=== PATIENT | female | born 1985 | race African-American/Black ===

== ENCOUNTER 2016-09-17 12:25 | Emergency (ER) | payer MEDICAID ==
[~2016-09-17] VITALS: Ht 162.6 cm; Wt 60.0 kg
[~2016-09-17 12:25] MED LIST: PREN-88
[2016-09-17] MEDS ORDERED: MORPHINE SULFATE 4 MG/ML CPJ (NOT FOR IM USE) IV STA (13:28)
[2016-09-17] MEDS ORDERED: ONDANSETRON HCL 4MG/2ML VIAL IV STA (13:28)
[2016-09-17] MEDS ORDERED: SODIUM CHLORIDE 0.9% 1,000 ML IV ONE (13:28)
[2016-09-17] MEDS ORDERED: LEVETIRACETAM 500MG PREMIX 100 ML IV ONE (13:30)
[2016-09-17 14:00] LABS: BASOPHILS % 0.3 % (0.0-2.0); EOSINOPHILS % 0.6 % (0.0-5.0); HEMATOCRIT. 30.1 % (36.0-48.0); HEMOGLOBIN. 10.2 g/dL (12.0-16.0); LYMPHOCYTES % 16.6 % (20.0-50.0); MEAN CORPUSCULAR HEMOGLOBIN 27.5 pg (28.0-32.0); MEAN CORPUSCULAR HGB CONC 33.7 g/dL (31.0-37.0); MEAN CORPUSCULAR VOLUME 81.4 fL (81.0-99.0); MEAN PLATELET VOLUME 7.3 fl (7.4-10.4); MONOCYTES % 5.3 % (2.0-8.0); NEUTROPHILS % 77.2 % (40.0-76.0); PLATELET 294 x1000/uL (130-400); WHITE BLOOD COUNT 12.2 x1000/uL (4.5-11.0)
[2016-09-17 14:11] LABS: CHLORIDE 106 mEq/L (98-107); INDEX HEMOLYSI 1 (1-3); INDEX ICTERIC 1 (1-4); INDEX LIPEMIC 1 (1-3)
[2016-09-17 14:16] LABS: ANION GAP 13; CALCIUM 8.5 mg/dL (8.5-10.1); CARBON DIOXIDE 23 mEq/L (21-32); ETHANOL BLOOD < 10 mg/dL
[2016-09-17 14:24] LABS: UREA NITROGEN BLOOD 4 mg/dL (7-21)
[2016-09-17 14:25] LABS: ALANINE AMINOTRANSFERASE 13 IU/L (13-61); CREATINE KINASE 109 IU/L (26-192); PHENYTOIN 0.6 ug/mL (10-20); THYROID STIMULATING HORMONE 0.56 uIU/mL (0.36-3.74); eGFR > 60 mL/min (>60)
[2016-09-17 14:26] LABS: CARBAMAZEPINE < 0.5 ug/mL (4-12); PHENOBARBITAL < 2.1 ug/mL (15.0-40.0); VALPROIC ACID 4.4 ug/mL (50-100)
[2016-09-17 14:40] LABS: B-HCG QUANTITATIVE 9388 mIU/mL (<3)
[2016-09-17 16:03] LABS: CLARITY URINE CLEAR (CLEAR); COLOR URINE YELLOW (YELLOW); GLUCOSE URINE NEGATIVE (NEGATIVE); KETONES URINE NEGATIVE (NEGATIVE); LEUKOCYTE ESTERASE URINE NEGATIVE (NEGATIVE); NITRITE URINE NEGATIVE (NEGATIVE); OCCULT BLOOD URINE NEGATIVE (NEGATIVE); PH URINE 7.5 (4.5-8.0); PROTEIN URINE NEGATIVE (NEGATIVE); SPECIFIC GRAVITY URINE 1.014 (1.005-1.030)
[2016-09-17] MEDS ORDERED: PHENOBARBITAL 100MG TABLET PO ONE (16:45)
[2016-09-17 16:55] LABS: *AMPHETAMINES SCREEN URINE NEGATIVE (NEGATIVE); *BARBITURATES SCREEN URINE NEGATIVE (NEGATIVE); *BENZODIAZEPINES SCREEN URINE NEGATIVE (NEGATIVE); *COCAINE SCREEN URINE NEGATIVE (NEGATIVE); ECSTASY MDMA SCREEN URINE NEGATIVE (NEGATIVE); METHADONE URINE SCREEN NEGATIVE (NEGATIVE); PHENCYCLIDINE URINE SCREEN NEGATIVE (NEGATIVE)
[2016-09-17 16:56] LABS: CANNABINOID URINE SCREEN PRESUMTIVE POSITIVE (NEGATIVE); OPIATES URINE SCREEN PRESUMTIVE POSITIVE (NEGATIVE)
[2016-09-17] MEDS ORDERED: PHENOBARBITAL 30 MG TABLET PO NR (17:15)
[2016-09-17 18:05] VITALS: BP 102/67
== END 2016-09-17 18:35 | disposition home or self-care (01) ==
LOC: ER 12:35
DX: O20.0 Threatened abortion (principal); G40.909 Epilepsy, unspecified, not intractable, without status epilepticus; O99.012 Anemia complicating pregnancy, second trimester; D64.9 Anemia, unspecified; O26.892 Other specified pregnancy related conditions, second trimester; Z85.3 Personal history of malignant neoplasm of breast; Z3A.19 19 weeks gestation of pregnancy
CPT/HCPCS: 36415; 76805; 80053; 80156; 80165; 80184; 80185; 80305; 81003; 82550; 84443; 84702; 85025; 86850; 86900; 86901; 96365; 96375; 99285; G0482; J1953; J2270; J2405; Z7610; J7030

== ENCOUNTER 2017-01-14 12:51 | Emergency (ER) | payer MEDICAID ==
[~2017-01-14] VITALS: Ht 154.9 cm; Wt 61.7 kg
[2017-01-14] MEDS ORDERED: PHEN15TA18 PO (13:38)
[2017-01-14] MEDS ORDERED: PREN-88 PO (13:38)
== END 2017-01-14 14:30 | disposition home or self-care (01) ==
LOC: ER 13:04 → L&D 13:05
PROVIDERS: ADMIT Obstetrics & Gynecology; ATTEND Obstetrics & Gynecology
DX: O76 Abnormality in fetal heart rate and rhythm complicating labor and delivery (principal); Z3A.37 37 weeks gestation of pregnancy
CPT/HCPCS: 99281; G0378; Z7610; 99285

== ENCOUNTER 2017-01-21 05:54 | Inpatient (IN) | payer MEDICAID ==
[~2017-01-21] VITALS: Ht 152.4 cm; Wt 62.6 kg
[~2017-01-21 05:54] MED LIST changes: +PHEN15TA18 PO; -PREN-88; +PREN-88 PO
[2017-01-21] MEDS ORDERED: DEXT 5%/LR + PITOCIN 20UNITS/L 1,000 ML IV SCH ×2 (06:04→16:35)
[2017-01-21] MEDS ORDERED: LIDOCAINE HCL 1% 20ML VIAL (Pyxis) INJ INFIL SCH (06:15)
[2017-01-21] MEDS ORDERED: NALOXONE HCL 0.4 MG/ML 1ML VIAL IM PRN (06:15)
[2017-01-21] MEDS ORDERED: METHYLERGONOVINE MALEATE 0.2 MG/ML IM PRN ×2 (06:15→16:45)
[2017-01-21] MEDS ORDERED: PENICILLIN G POTASSIUM 5 MMU in DEXT 5% WATER 100 ML IV SCH (07:00)
[2017-01-21] MEDS ORDERED: BUTORPHANOL TARTRATE 2 MG/ML VIAL IV PRN (07:15)
[2017-01-21] MEDS: LACTATED RINGERS 1,000 ML IV SCH ×2 (07:21→10:10)
[2017-01-21 08:03] LABS: CLARITY URINE TURBID (CLEAR); COLOR URINE YELLOW (YELLOW); GLUCOSE URINE NEGATIVE (NEGATIVE); KETONES URINE NEGATIVE (NEGATIVE); LEUKOCYTE ESTERASE URINE 2+ (NEGATIVE); NITRITE URINE NEGATIVE (NEGATIVE); OCCULT BLOOD URINE TRACE (NEGATIVE); PH URINE 6.5 (4.5-8.0); PROTEIN URINE TRACE (NEGATIVE); SPECIFIC GRAVITY URINE 1.011 (1.005-1.030); UROBILINOGEN URINE 0.2 E.U./dL (0.2-1.0)
[2017-01-21 08:06] LABS: BASOPHILS % 0.6 % (0.0-2.0); EOSINOPHILS % 0.5 % (0.0-5.0); HEMATOCRIT. 31.2 % (36.0-48.0); LYMPHOCYTES % 26.5 % (20.0-50.0); MEAN CORPUSCULAR HEMOGLOBIN 26.1 pg (28.0-32.0); MEAN CORPUSCULAR VOLUME 81.8 fL (81.0-99.0); MEAN PLATELET VOLUME 7.6 fl (7.4-10.4); MONOCYTES % 5.7 % (2.0-8.0); NEUTROPHILS % 66.7 % (40.0-76.0); PLATELET 297 x1000/uL (130-400); RED BLOOD CELL COUNT 3.81 mill/uL (4.2-5.4); RED CELL DISTRIBUTION WIDTH 14.9 % (11.6-14.6)
[2017-01-21 08:09] LABS: INR 0.9; PARTIAL THROMBOPLASTIN TIME 26.4 sec (23.4-31.0); PROTHROMBIN TIME 9.4 sec (9.4-11.6)
[2017-01-21 08:16] LABS: *AMPHETAMINES SCREEN URINE NEGATIVE (NEGATIVE); *BARBITURATES SCREEN URINE NEGATIVE (NEGATIVE); *BENZODIAZEPINES SCREEN URINE NEGATIVE (NEGATIVE); *COCAINE SCREEN URINE NEGATIVE (NEGATIVE); METHADONE URINE SCREEN NEGATIVE (NEGATIVE); OPIATES URINE SCREEN NEGATIVE (NEGATIVE); PHENCYCLIDINE URINE SCREEN NEGATIVE (NEGATIVE)
[2017-01-21 08:23] LABS: CARBON DIOXIDE 22 mEq/L (21-32); CHLORIDE 106 mEq/L (98-107)
[2017-01-21 08:45] LABS: CANNABINOID URINE SCREEN PRESUMTIVE POSITIVE (NEGATIVE)
[2017-01-21] MEDS ORDERED: BUPIVACAINE HCL/NS/PF EPIDURAL 100 ML EP ONE (08:58)
[2017-01-21] MEDS ORDERED: BUPIVACAINE HCL/PF 0.25% (2.5MG/ML) 10ML ONE (08:58)
[2017-01-21] MEDS ORDERED: FENTANYL CITRATE/PF 50MCG/ML 2ML VIAL ONE (08:58)
[2017-01-21 09:22] LABS: RUBELLA IGG 89.6 IU/mL (4.99-10)
[2017-01-21 09:23] LABS: HEPATITIS B SURFACE ANTIGEN NEGATIVE
[2017-01-21] MEDS ORDERED: BUPIVACAINE HCL/NS/PF EPIDURAL 100 ML EP SCH (09:45)
[2017-01-21] MEDS ORDERED: DIPHENHYDRAMINE 50MG/ML VIAL IM PRN (09:45)
[2017-01-21] MEDS ORDERED: ONDANSETRON HCL 4MG/2ML VIAL IV PRN (09:45)
[2017-01-21] MEDS: PENICILLIN G POTASSIUM 2.5 MMU in DEXTROSE 5% WATER 50 ML IV SCH ×2 (11:35→15:15)
[2017-01-21] MEDS ORDERED: BISACODYL 10MG SUPP PR PRN (16:45)
[2017-01-21] MEDS ORDERED: ACETAMINOPHEN WITH CODEINE 300/30MG TABLET PO PRN (16:45)
[2017-01-21] MEDS: ACETAMINOPHEN WITH CODEINE 300/30MG TABLET PO PRN (19:22)
[2017-01-21 19:45] VITALS: BP 115/71
[2017-01-21] MEDS: DOCUSATE SODIUM 100MG CAPSULE PO SCH (21:48)
[2017-01-21] MEDS: MAGNESIUM/ALUMINUM HYDROXIDE/SIMETHICONE 30ML UDC PO SCH (21:49)
[2017-01-21 23:50] VITALS: BP 116/48
[2017-01-21] MEDS: IBUPROFEN 400MG TABLET PO PRN (23:59)
[2017-01-22 06:27] LABS: HEMATOCRIT 27.9 % (36.0-48.0)
[2017-01-22 08:30] VITALS: BP 108/66
[2017-01-22] MEDS: ACETAMINOPHEN WITH CODEINE 300/30MG TABLET PO PRN ×3 (08:47→21:26)
[2017-01-22] MEDS: PRENATAL VIT/FE FUMARATE/FA TABLET PO SCH (08:48)
[2017-01-22] MEDS ORDERED: FERROUS SULFATE 325MG TABLET PO SCH (12:10)
[2017-01-22 15:00] VITALS: BP 119/63
[2017-01-22 20:00] VITALS: BP 110/78
[2017-01-22] MEDS: DOCUSATE SODIUM 100MG CAPSULE PO SCH (21:26)
[2017-01-22] MEDS: LEVETIRACETAM 500MG TABLET PO SCH (21:27)
[2017-01-23] VITALS: BP 108/58
[2017-01-23] MEDS: MAGNESIUM/ALUMINUM HYDROXIDE/SIMETHICONE 30ML UDC PO SCH ×2 (03:06→08:26)
[2017-01-23 04:00] VITALS: BP 108/72
[2017-01-23 07:27] VITALS: BP 122/81
[2017-01-23] MEDS: PRENATAL VIT/FE FUMARATE/FA TABLET PO SCH (08:26)
[2017-01-23] MEDS: IBUPROFEN 400MG TABLET PO PRN (08:27)
[2017-01-23] MEDS: LEVETIRACETAM 500MG TABLET PO SCH (08:27)
== END 2017-01-23 12:00 | disposition home or self-care (01) | DRG 560 ==
LOC: L&D 05:54 → OBSVTOIN 05:54 → 7EST PP/OB 18:45
PROVIDERS: ADMIT Obstetrics & Gynecology; ATTEND Obstetrics & Gynecology
PROC: 3E0S3CZ (ICD-10-PCS; 2017-01-21)
PROC: 00HU33Z Insertion of Infusion Device into Spinal Canal, Percutaneous Approach (ICD-10-PCS; 2017-01-21)
PROC: 10E0XZZ Delivery of Products of Conception, External Approach (ICD-10-PCS; principal; 2017-01-21 16:11)
DX: O99.354 Diseases of the nervous system complicating childbirth (principal); D62 Acute posthemorrhagic anemia; O99.02 Anemia complicating childbirth; G40.909 Epilepsy, unspecified, not intractable, without status epilepticus; Z85.3 Personal history of malignant neoplasm of breast; Z3A.37 37 weeks gestation of pregnancy; Z37.0 Single live birth; O99.824 Streptococcus B carrier state complicating childbirth
CPT/HCPCS: 36415; 80053; 80305; 80349; 81001; 85014; 85018; 85025; 85610; 85730; 86592; 86703; 86762; 86850; 86900; 87340; J0595; J2540; J2590; J3010; J3490; J7060; J7120; A4315

== ENCOUNTER 2018-12-27 07:05 | Observation (INO) | payer MEDICAID ==
[~2018-12-27] VITALS: Ht 160 cm; Wt 59.0 kg
[2018-12-27] MEDS ORDERED: LACTATED RINGERS 500 ML IV ONE (08:30)
[2018-12-27 08:44] LABS: BASOPHILS % 0.8 % (0.0-2.0); EOSINOPHILS % 1.1 % (0.0-5.0); HEMATOCRIT. 28.5 % (36.0-48.0); HEMOGLOBIN. 9.6 g/dL (12.0-16.0); LYMPHOCYTES % 27.3 % (20.0-50.0); MEAN CORPUSCULAR HEMOGLOBIN 30.1 pg (28.0-32.0); MEAN CORPUSCULAR VOLUME 89.1 fL (81.0-99.0); MEAN PLATELET VOLUME 7.3 fl (7.4-10.4); MONOCYTES % 8.2 % (2.0-8.0); NEUTROPHILS % 62.6 % (40.0-76.0); PLATELET 286 x1000/uL (130-400)
[2018-12-27 08:55] LABS: CLARITY URINE TURBID (CLEAR); COLOR URINE YELLOW (YELLOW); KETONES URINE NEGATIVE (NEGATIVE); LEUKOCYTE ESTERASE URINE NEGATIVE (NEGATIVE); NITRITE URINE NEGATIVE (NEGATIVE); OCCULT BLOOD URINE NEGATIVE (NEGATIVE); PROTEIN URINE NEGATIVE (NEGATIVE); SPECIFIC GRAVITY URINE 1.022 (1.005-1.030); UROBILINOGEN URINE 0.2 E.U./dL (0.2-1.0)
[2018-12-27] MEDS ORDERED: PHENOBARBITAL 30 MG TABLET PO ONE (09:00)
[2018-12-27] MEDS ORDERED: ACETAMINOPHEN 500MG TABLET PO ONE (09:15)
[2018-12-27] MEDS ORDERED: PHEN30TA42 MT (10:01)
== END 2018-12-27 11:58 | disposition home or self-care (01) ==
LOC: 8 EST LDRP 07:05 → 8 EST A/PP 07:15
PROVIDERS: ADMIT Obstetrics & Gynecology; ATTEND Obstetrics & Gynecology
DX: O26.892 Other specified pregnancy related conditions, second trimester (principal); Z3A.21 21 weeks gestation of pregnancy
CPT/HCPCS: 36415; 80184; 81003; 85025; 99281; G0378; 96360

== ENCOUNTER 2019-01-04 22:30 | Emergency (ER) | payer MEDICAID ==
[~2019-01-04] VITALS: Ht 157.5 cm; Wt 59.0 kg
[~2019-01-04 22:30] MED LIST changes: -PHEN15TA18 PO; +PHEN30TA42 MT
[2019-01-05 01:00] VITALS: BP 121/70
== END 2019-01-05 02:45 | disposition home or self-care (01) ==
LOC: ER 22:30 → UNDOADMOB 23:08 → 8 EST LDRP 23:08 → UNDODISOB 23:50 → ER 01-05 02:45
DX: O91.112 Abscess of breast associated with pregnancy, second trimester (principal); Z3A.26 26 weeks gestation of pregnancy; R56.9 Unspecified convulsions; Z91.013 Allergy to seafood
CPT/HCPCS: 99281; 99283; G0378

== ENCOUNTER 2021-07-05 12:23 | Emergency (ER) | payer MEDICAID ==
[~2021-07-05] VITALS: Ht 152.4 cm; Wt 56.0 kg
[~2021-07-05 12:23] MED LIST changes: -PHEN30TA42 MT; +PHEN30TA50 MT
[2021-07-05] MEDS ORDERED: ACETAMINOPHEN 325MG TABLET PO ONE (13:00)
[2021-07-05 15:23] VITALS: BP 122/72
== END 2021-07-05 15:24 | disposition home or self-care (01) ==
LOC: ER 12:23
DX: B34.9 Viral infection, unspecified (principal); G40.909 Epilepsy, unspecified, not intractable, without status epilepticus; F17.210 Nicotine dependence, cigarettes, uncomplicated; Z20.822 Contact with and (suspected) exposure to COVID-19; Z91.013 Allergy to seafood
CPT/HCPCS: 81025; 87426; 87804; 99283

== ENCOUNTER 2021-08-25 21:21 | Emergency (ER) | payer MEDICAID ==
[~2021-08-25] VITALS: Ht 152.4 cm; Wt 55.0 kg
[2021-08-25] MEDS ORDERED: LEVETIRACETAM 1000MG PREMIX 100 ML IV ONE (22:00)
[2021-08-25 23:23] LABS: CLARITY URINE CLEAR (CLEAR); COLOR URINE YELLOW (YELLOW); KETONES URINE NEGATIVE (NEGATIVE); LEUKOCYTE ESTERASE URINE NEGATIVE (NEGATIVE); NITRITE URINE NEGATIVE (NEGATIVE); OCCULT BLOOD URINE NEGATIVE (NEGATIVE); PH URINE 5.5 (4.5-8.0); PROTEIN URINE NEGATIVE (NEGATIVE); UROBILINOGEN URINE 0.2 E.U./dL (0.2-1.0)
[2021-08-25 23:28] LABS: BASOPHILS % 0.7 % (0.0-2.0); CHLORIDE 107 mEq/L (98-107); EOSINOPHILS % 1.1 % (0.0-5.0); HEMOGLOBIN. 9.5 g/dL (12.0-16.0); MEAN CORPUSCULAR HEMOGLOBIN 21.6 pg (28.0-32.0); MEAN CORPUSCULAR VOLUME 68.1 fL (81.0-99.0); MEAN PLATELET VOLUME 6.4 fl (7.4-10.4); MONOCYTES % 4.4 % (2.0-8.0); NEUTROPHILS % 68.8 % (40.0-76.0); PLATELET 417 x1000/uL (130-400); RED BLOOD CELL COUNT 4.41 mill/uL (4.2-5.4); RED CELL DISTRIBUTION WIDTH 19.4 % (11.6-14.6)
[2021-08-25 23:32] LABS: ETHANOL BLOOD 140 mg/dL
[2021-08-25 23:41] LABS: *BARBITURATES SCREEN URINE NEGATIVE (NEGATIVE); *BENZODIAZEPINES SCREEN URINE NEGATIVE (NEGATIVE); *COCAINE SCREEN URINE NEGATIVE (NEGATIVE); METHADONE URINE SCREEN NEGATIVE (NEGATIVE); OPIATES URINE SCREEN NEGATIVE (NEGATIVE); PHENCYCLIDINE URINE SCREEN NEGATIVE (NEGATIVE)
[2021-08-25 23:43] LABS: *AMPHETAMINES SCREEN URINE PRESUMTIVE POSITIVE (NEGATIVE); CANNABINOID URINE SCREEN PRESUMTIVE POSITIVE (NEGATIVE)
[2021-08-26 02:09] LABS: PLATELET ESTIMATE SLIGHTLY INCREASED
[2021-08-26 06:00] VITALS: BP 117/63
== END 2021-08-26 06:23 | disposition left against medical advice (07) ==
LOC: ER 21:21
DX: G93.40 Encephalopathy, unspecified (principal); R56.9 Unspecified convulsions; R51.9 Headache, unspecified; F12.10 Cannabis abuse, uncomplicated; F15.10 Other stimulant abuse, uncomplicated
CPT/HCPCS: 36415; 70450; 80053; 80305; 80320; 81003; 82962; 85025; 96365; 99291; J1953; G0480

== ENCOUNTER 2024-04-18 15:05 | Emergency (ER) | payer SELFPAY ==
[~2024-04-18] VITALS: Ht 154.9 cm; Wt 54.0 kg
[2024-04-18 15:07] VITALS: O2SAT 100
[2024-04-18] MEDS ORDERED: IBUP-2029 MT (15:43)
[2024-04-18] MEDS ORDERED: METH-653 MT (15:43)
[2024-04-18] MEDS: KETOROLAC 30MG/ML VIAL IM ONE (16:44)
[2024-04-18] MEDS: METHOCARBAMOL 500MG TABLET PO ONE (16:45)
[2024-04-18 16:53] VITALS: BP 145/67; PULSE 104; RESP 16; TEMP 36.66960; O2SAT 100
== END 2024-04-18 16:55 | disposition home or self-care (01) ==
LOC: ER 15:05
DX: S33.5XXA Sprain of ligaments of lumbar spine, initial encounter (principal); F12.10 Cannabis abuse, uncomplicated; F15.10 Other stimulant abuse, uncomplicated; Z79.899 Other long term (current) drug therapy; X58.XXXA Exposure to other specified factors, initial encounter; Y93.89 Activity, other specified; Y92.89 Other specified places as the place of occurrence of the external cause; Y99.8 Other external cause status
CPT/HCPCS: 99283; 96372; J1885